=== PATIENT | female | born 1950 | race Caucasian/White ===

== ENCOUNTER 2022-09-08 15:38 | Emergency (ER) | payer MEDICARE, BC, SELFPAY ==
[2022-09-08 16:29] VITALS: BP 142/88; PULSE 71; RESP 18; TEMP 36.7; O2SAT 93
[2022-09-08 18:22] VITALS: BP 170/102; PULSE 69; O2SAT 97
--- NOTE | 2022-09-08 18:31 | ED.GENADULT ---
HPI - General Adult General Time Seen by Provider: 18:32 Date Seen: 09/08/22 Chief complaint: Head Injury/Pain Stated complaint: Hit Back of Head - Fell on Ice Time Seen by Provider: 09/08/22 18:17 Source: patient and RN notes reviewed Mode of arrival: ambulatory Limitations: no limitations History of Present Illness HPI narrative: Patient is a 72-year-old female coming into the ER tonight after falling on the ice. She was shoveling, slipped fell backwards hitting the back of her head. She had significant pain at 1st. [place] dizzy and nauseated without any emesis. The nausea has abated now. Denies any need for any pain management for headache. No visual changes, no neurologic changes. She states she hit the back of her head very hard. She is feeling dizzy with movement. She is on no blood thinners. She is a retired home health nurse, now giving out COVID shots. She was concerned about her blood pressure. It did go up after coming in here. I reviewed with her to try to not focus on that. We frequently see blood pressures go up in the ER, it is stressful. Reviewed with her that we will certainly be doing a head CT to rule out any intracranial pathology. This did seem to help settle her a bit. Patient did not lose consciousness. Related Data Home Medications Medication Instructions Recorded Confirmed levothyroxine 88 mcg tablet mcg 09/08/22 perservision 09/08/22 Previous Rx's Medication Instructions Recorded ondansetron 4 mg disintegrating 4 mg PO Q6H PRN nausea and 09/08/22 tablet vomiting #20 tabs Allergies Allergy/AdvReac Type Severity Reaction Status Date / Time copper Allergy Intermediate Verified 09/08/22 16:35 Review of Systems Status of ROS: Reports: 6 or more systems reviewed and unremarkable except as noted in History and below Exam Const: Vital Signs, click to edit/add: Vital Signs - 24 hr 09/08/22 16:29 09/08/22 18:22 Temperature 98.1 F Pulse Rate [Pulse Oximeter] 71 69 Respiratory Rate 18 Blood Pressure [Ri ght Upper Arm] 142/88 H 170/102 H Pulse Oximetry 93 97 Oxygen Delivery Me thod Room Air Room Air Documenting provider has reviewed patient's vital signs: yes Common normals: no apparent distress, average body habitus, oriented x3, no limitations, healthy appearing, alert and well nourished General appearance: cooperative, comfortable, well kempt and well developed HENMT: Common normals: normocephalic, hearing grossly normal bilaterally, external ears normal, external nose normal, nasal mucous membranes and turbinates normal, moist oral mucous membranes, oropharynx normal, dentition normal and gingiva normal Head and scalp: normocephalic Nose: external nose normal and nasal mucous membranes and turbinates normal External ear: external ears normal Other: Has a palpable raised area on the left occipital scalp that is tender, no visible discontinuity of the skin. Right canal is obstructed by serum min, she notes that it was noted at her physical, tried inxa-xpq-rmvykvj drops. Recommended that she may need to return to the clinic for flushing or see ENT for removal. Left TM canal are normal. Eye: Common normals: PERRL, EOMs intact bilaterally, conjunctivae normal and no scleral icterus Conjunctiva: conjunctiva(e) normal Pupil: PERRL Neck & C-Spine: Common normals: full ROM (No midline or paraspinous tenderness.), no lymphadenopathy, supple, no meningeal signs and no JVD Resp: Common normals: normal respiratory effort, no retractions, no use of accessory muscles and clear to auscultation bilaterally Auscultation: clear to auscultation bilaterally Cardio: Common normals: no JVD, regular rate, regular rhythm, S1 normal heart sound, S2 normal heart sound, no gallops, no clicks and no murmurs Rate: regular rate Rhythm: regular rhythm Heart sounds: S1 normal and S2 normal GI: Common normals: Normal to inspection, nondistended, normoactive bowel sounds present, soft to palpation, non-tender, no hepatosplenomegaly and no masses Palpation: soft and no hepatosplenomegaly Neuro: Common normals: oriented x3, CN's II-XII intact bilaterally, moves all extremities, no focal motor deficits, no sensory deficits noted and gait normal Sensorium/orientation: alert Meningeal signs: no meningeal signs Speech: speech normal Psych: Appearance: well kempt Course Course Hospital Course: Will obtain head CT. It is reassuring to see that the nausea has abated but did discuss with the patient that these symptoms can return. My presumption is that she will likely have a concussion and she could see waxing and waning of concussion symptoms. She did have some noted sense of dizziness with sitting up. Will ensure normal nontraumatic head CT, then discuss with her home management for concussion. Otherwise if there is pathology seen on the head CT, will act and treat accordingly. Reevaluation(s) Reevaluation #1: Reviewed with patient her normal head CT. She was worried about possible late bleeding, tried to reassure her that this is a very uncommon complication. Discussed meclizine use if she is having symptoms of feeling dizzy. She could try that it may or may not help her. I will send her with a prescription of Zofran in case nausea does return. Stressed to her that if she has ongoing symptoms that this is most definitely a concussion. Time: 19:27 Vital Signs Vital signs: Initial Vital Signs Temperature 98.1 F 09/08/22 16:29 Temperature Source Temporal Artery Scan 09/08/22 16:29 Pulse Rate 71 09/08/22 16:29 Respiratory Rate 18 09/08/22 16:29 Blood Pressure 142/88 H 09/08/22 16:29 Blood Pressure Mean 106 09/08/22 16:29 Blood Pressure Position Supine 09/08/22 16:29 Pulse Oximetry 93 09/08/22 16:29 Oxygen Delivery Method 09/08/22 16:29 Vital Signs Temperature 98.1 F 09/08/22 16:29 Pulse Rate 71 09/08/22 16:29 Respiratory Rate 18 09/08/22 16:29 Blood Pressure 142/88 H 09/08/22 16:29 Pulse Oximetry 93 09/08/22 16:29 Oxygen Delivery Method 09/08/22 16:29 Temperature 98.1 F 09/08/22 16:29 Pulse Rate 69 09/08/22 18:22 Respiratory Rate 18 09/08/22 16:29 Blood Pressure 170/102 H 09/08/22 18:22 Pulse Oximetry 97 09/08/22 18:22 Oxygen Delivery Method 09/08/22 18:22 Medical Decision Making Imaging Data CT scan - head: Attestation: I have reviewed the pertinent imaging results. Radiologist's impression: Patient: IVELISSE WOODS Facility:?[facility] Patient ID:?[id number] Site Patient ID:?[id number]. Site :?[id number] Study:?CT Head WITHOUT-09/08/2022 6:57:01 PM Ordering Physician:Usha Mckeon Final Report: INDICATION: Fall. Hit back of head on ice. TECHNIQUE: CT of the head without contrast. Coronal and sagittal reformats are included. COMPARISON: None. FINDINGS: No acute intracranial hemorrhage. No mass effect or midline shift. No hydrocephalus or extra-axial collections. White matter is within normal limits for age. No acute osseous abnormalities. Mastoid air cells and paranasal sinuses are clear. Normal soft tissues. IMPRESSION: IMPRESSION: 1. No acute intracranial abnormalities. Please note that all CT scans at this facility use dose modulation, iterative reconstruction, and/or weight-based dosing when appropriate to reduce radiation dose to as low as reasonably achievable. Dictated by Estevan Coronado MD @ 09/08/2022 7:08:49 PM (Electronic Signature) Critical Care Time Critical Care Time Critical Care Time: No Discharge Plan Discharge Clinical Impression: Concussion without loss of consciousness, Closed head injury Patient Disposition: Home, Self-Care Condition: Stable Instructions: Concussion (ED) Additional Instructions: Trying rest tonight, light activity until you know that you are feeling fully improved. Can use Tylenol and/or ibuprofen if you would needed for headache, headache can be associated with concussion. It is possible that the nausea will return, symptoms of concussion can be cyclic or wax and wane. Will send a prescription for Zofran in in case you need it. If you have ongoing symptoms of concussion, do recommend recheck in clinic with your primary care provider within the next 7-10 days. If there is ongoing concussion symptoms, talk to your primary care provider about going to a traumatic brain injury/concussion Center for further treatment and evaluation. Activity Level: Activity as Tolerated Discharge Diet: Regular Prescriptions: New ondansetron 4 mg tablet,disintegrating 4 mg PO Q6H PRN (Reason: nausea and vomiting) Qty: 20 0RF No Action levothyroxine 88 mcg tablet perservision Stand Alone Forms: [employer] Info Instructions
--- NOTE | 2022-09-08 18:39 | CRLHL7_ITS ---
For Patients: As a result of the Century Cures Act, medical imaging exams and procedure reports are released immediately into your electronic medical record. You may view this report before your referring provider. If you have questions, please contact your health care provider. INDICATION: Fall. Hit back of head on ice. TECHNIQUE: CT of the head without contrast. Coronal and sagittal reformats are included. COMPARISON: None. FINDINGS: No acute intracranial hemorrhage. No mass effect or midline shift. No hydrocephalus or extra-axial collections. White matter is within normal limits for age. No acute osseous abnormalities. Mastoid air cells and paranasal sinuses are clear. Normal soft tissues. IMPRESSION: IMPRESSION: 1. No acute intracranial abnormalities. Please note that all CT scans at this facility use dose modulation, iterative reconstruction, and/or weight-based dosing when appropriate to reduce radiation dose to as low as reasonably achievable. Dictated by Estevan Coronado MD @ 09/08/2022 7:08:49 PM (Electronically Signed)
[2022-09-08 19:00] VITALS: BP 156/89; PULSE 65; O2SAT 97
== END 2022-09-08 19:55 | disposition home or self-care (01) ==
PROVIDERS: Emergency Provider Family Medicine; PCP Internal Medicine
DX: S06.0X0A Concussion without loss of consciousness, initial encounter (principal); W00.0XXA Fall on same level due to ice and snow, initial encounter; Y93.H1 Activity, digging, shoveling and raking; Y92.017 Garden or yard in single-family (private) house as the place of occurrence of the external cause; Y99.8 Other external cause status
CPT/HCPCS: 70450; 99284

== ENCOUNTER 2022-11-01 06:12 | Emergency (ER) | payer MEDICARE, BC, SELFPAY ==
[2022-11-01 06:19] VITALS: BP 143/99; PULSE 86; RESP 16; TEMP 35.9; O2SAT 97; BMI 29.5
--- NOTE | 2022-11-01 06:37 | ED.EPISTAXIS ---
History of Present Illness General Chief Complaint: Epistaxis/Nosebleed Stated Complaint: Nosebleed Time Seen by Provider: 11/01/22 06:31 History of Present Illness HPI Narrative: Pt is a 72 year old woman who awoke this morning to put a pork roast in the crock pot. She developed spontaneous bleeding from the left nostril which then lead to bleeding from the right nostril as well. Pt states the bleeding was brisk. She comes in with both nostrils packed with gauze and the bleeding controlled. Pt has a distant history of epistaxis with none recently. Pt takes no anticoagulants or antiplatlet agents. Pt has had no recent trauma and has otherwise been in her usual state of health. Related Data Home Medications Medication Instructions Recorded Confirmed levothyroxine 88 mcg tablet 88 mcg PO .once daily 09/08/22 11/01/22 perservision 09/08/22 Previous Rx's Medication Instructions Recorded ondansetron 4 mg disintegrating 4 mg PO Q6H PRN nausea and 09/08/22 tablet vomiting #20 tabs Allergies Allergy/AdvReac Type Severity Reaction Status Date / Time copper Allergy Intermediate Verified 09/08/22 16:35 Review of Systems Status of ROS: Reports: 10 or more systems reviewed and unremarkable except as noted in History and below [facility] Medical History (Updated 11/01/22 @ 06:45 by Cal Khan MD) Epistaxis Hypothyroidism Social History Smoking Status: Never smoker Do you use any of these nicotine containing products: None Second hand tobacco smoke exposure: No How often do you have a drink containing alcohol: never How often do you have six or more drinks on one occasion: Never AUDIT-C Alcohol total score: 0 Non-prescribed substance use: denies use Exam Narrative: Exam Narrative: EXAM GENERAL: Patient appears comfortable and well. EYES: No scleral icterus. ENT: Tympanic membranes and oropharynx normal. Both nostrils packed with bloody gauze. THYROID: no thyroid nodules or thyromegaly. LYMPH: No supraclavicular or cervical lymphadenopathy. SKIN: Visible skin seen during exam normal or with benign process only. EXT: No dependent lower extremity pedal edema. HEART: Regular rate and rhythm with no murmurs, rubs, or gallops. LUNGS: Clear to auscultation bilaterally with no crackles or wheezes. ABD: Soft, non tender, non distended. PSYCH: Good eye contact, speech is not pressured. Const: Vital Signs, click to edit/add: Vital Signs - 24 hr 11/01/22 06:19 Temperature 96.7 F L Pulse Rate [Pulse Oximeter] 86 Respiratory Rate 16 Blood Pressure [Le ft Upper Arm] 143/99 H Pulse Oximetry 97 Oxygen Delivery Me thod Room Air Course Course Hospital Course: Both nostrils unpacked. No further bleeding on either side. Afrin soaked cotton ball packed into the left nostril. Vital Signs Vital signs: Initial Vital Signs Temperature 96.7 F L 11/01/22 06:19 Temperature Source Temporal Artery Scan 11/01/22 06:19 Pulse Rate 86 11/01/22 06:19 Pulse Rhythm 11/01/22 06:19 Respiratory Rate 16 11/01/22 06:19 Blood Pressure 143/99 H 11/01/22 06:19 Blood Pressure Mean 113 11/01/22 06:19 Pulse Oximetry 97 11/01/22 06:19 Oxygen Delivery Method 11/01/22 06:19 Vital Signs Temperature 96.7 F L 11/01/22 06:19 Pulse Rate 86 11/01/22 06:19 Respiratory Rate 16 11/01/22 06:19 Blood Pressure 143/99 H 11/01/22 06:19 Pulse Oximetry 97 11/01/22 06:19 Oxygen Delivery Method 11/01/22 06:19 Temperature 96.7 F L 11/01/22 06:19 Pulse Rate 86 11/01/22 06:19 Respiratory Rate 16 11/01/22 06:19 Blood Pressure 143/99 H 11/01/22 06:19 Pulse Oximetry 97 11/01/22 06:19 Oxygen Delivery Method 11/01/22 06:19 MDM - Epistaxis MDM Narrative Medical decision making narrative: Pt is a 72 year old healthy woman not on anticoagulants or anti-platelet agents who presents with epistaxis. Vital signs stable. Exam otherwise unremarkable. Pt's gauze removed and afrin soaked cotton ball placed into the left nostril. Pt has no further evidence of bleeding. Discharged home to change cotton ball as needed. Differential Diagnosis Differential diagnosis: Likely anterior epistaxis and posterior epistaxis Discharge Plan Discharge Clinical Impression: Epistaxis Condition: Stable Instructions: Nosebleed (ED) Additional Instructions: Change cotton ball as we discussed. Activity Level: No Restrictions Discharge Diet: Regular Prescriptions: No Action levothyroxine 88 mcg tablet 88 mcg PO .once daily perservision ondansetron 4 mg tablet,disintegrating 4 mg PO Q6H PRN (Reason: nausea and vomiting) Qty: 20 0RF Follow Up/Referrals: Angélica Jarvis MD [Primary Care Provider] - Stand Alone Forms: [employer] Info Instructions
[2022-11-01] MEDS: OXYMETAZOLINE (AFRIN) SOAK 1 EACH TOPICAL (06:41)
== END 2022-11-01 06:55 | disposition home or self-care (01) ==
LOC: ED 06:47
PROVIDERS: Emergency Provider Internal Medicine; PCP Internal Medicine
DX: R04.0 Epistaxis (principal)
CPT/HCPCS: 99283

== ENCOUNTER 2023-04-01 06:51 | Day surgery (SDC) | payer MEDICARE, BC, SELFPAY ==
[2023-04-01] MEDS: KETOROLAC OPHTH 0.5% 1 DROP EYE-RIGHT ×3 (07:00→07:10)
[2023-04-01] MEDS: TETRACAINE 0.5% OPHTH 1 DROP EYE-RIGHT ×2 (07:00→07:05)
[2023-04-01 07:06] VITALS: BMI 30.4
[2023-04-01 07:22] VITALS: BP 134/90; PULSE 71; RESP 18; TEMP 36.4; O2SAT 96
[2023-04-01] MEDS: SODIUM CHLORIDE 0.9 % (FLUSH) 10 ML SYRINGE IVF (07:24)
--- NOTE | 2023-04-01 07:27 | SUR.PREOP ---
The eye drops brought by the patient (Ketorolac and Prednisolone) are examined and I have determined they are labeled by the patient's pharmacy for this patient as prescribed by the surgeon. The bottles are intact, recently obtained and appear to be correct.[id number] right eye Ani ALVARENGA
[2023-04-01] MEDS: TETRACAINE 0.5% OPHTH 2 DROP EYE-RIGHT (08:00)
[2023-04-01] MEDS: BALANCED SALT IRRIG SOLN 15 ML EYE-RIGHT (08:06)
--- NOTE | 2023-04-01 08:06 | W.ANESCHARGE ---
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
[2023-04-01 08:29] VITALS: BP 142/89; PULSE 58; RESP 18; TEMP 36.4; O2SAT 94
--- NOTE | 2023-04-01 10:23 | W.PM.OPTPROC ---
Procedure Note Date of procedure: 04/01/23 Will [facility] bill your pro fee for this procedure?: Yes Procedure Description: SURGEON: Viri Fried MD PREOPERATIVE DIAGNOSIS: Nuclear sclerotic cataract, right eye. POSTOPERATIVE DIAGNOSIS: Nuclear sclerotic cataract, right eye. NAME OF OPERATION: Phacoemulsification of cataract with posterior chamber intraocular lens implantation in the right eye. ANESTHESIA: Topical. ESTIMATED BLOOD LOSS: Less than 2 cc. COMPLICATIONS: None. PATHOLOGY SPECIMEN: None. INDICATIONS: See consult note for details. The risks, benefits and alternatives of the procedure were explained to the patient, who elected to proceed and signed informed consent to do so. PROCEDURE: The patient was brought to the pre-holding area where the right eye was identified as the operative eye. I placed my initials above this eye. The patient received eye drops consisting of 0.5% tetracaine, 1% tropicamide, 10% phenylephrine, and 0.5% ketorolac. The patient was then brought to the operating room where the right eye was again identified as the operative eye. The eye was prepped with Betadine and draped in the usual sterile ophthalmic fashion. A #15 super-sharp blade was used to create a paracentesis site. 1% non-preserved intracameral lidocaine was injected into the anterior chamber. Endocoat was injected into the anterior chamber. A 2.4 mm keratome was used to create a three-plane self-sealing incision 1 mm anterior to the temporal limbus. A cystotome was used to create an anterior capsular leaflet. The Utrata forceps were used to extend this to form a continuous curvilinear capsulorrhexis. Hydrodissection was performed. The cataract was removed with phacoemulsification using the [id number] technique. The irrigation and aspiration tip was used to remove the remaining cortex. Healon was injected into the capsular bag. An JONAS ZCB00 intraocular lens of 15.0 diopters was injected into the capsular bag. The irrigation and aspiration tip was used to remove the remaining viscoelastic. Balanced salt solution on a cannula was used to hydrate the wound, and the wound was found to be watertight. The pupil was noted to be round. DISPOSITION: The patient was taken to the recovery room and discharged to home in stable condition. The patient was instructed to call me or go to the emergency department with any sudden change, including dramatic loss of vision, severe pain in the eye or eyebrow region, nausea, or vomiting. The patient will follow up in the clinic tomorrow morning.
== END 2023-04-01 09:03 | disposition home or self-care (01) ==
PROVIDERS: PCP Internal Medicine; Visit Provider Ophthalmology
PROC: (CPT 66984; principal; 2023-04-01 06:45)
DX: H25.11 Age-related nuclear cataract, right eye (principal)
CPT/HCPCS: 66984; 00142; 99100; A9270; J2250; J3010; V2632

== ENCOUNTER 2023-11-08 20:44 | Emergency (ER) | payer MEDICARE, BC, SELFPAY ==
[2023-11-08 20:48] VITALS: BP 161/96; PULSE 104; RESP 18; TEMP 36.1; O2SAT 97; BMI 29.3
[2023-11-08] MEDS: OXYMETAZOLINE 0.05% NASAL SPRAY 1 SPRAY NOSTRIL-B (21:07)
--- NOTE | 2023-11-08 21:18 | ED_ITS ---
History of Present Illness General Date Seen: 11/08/23 Chief Complaint: Epistaxis/Nosebleed Stated Complaint: Spontaneous nonstop nosebleed @ 6:45pm Time Seen by Provider: 11/08/23 20:47 Source: patient Mode of arrival: ambulatory Limitations: no limitations History of Present Illness HPI Narrative: Patient is a 73-year-old female with a history of hypothyroidism presenting to emergency department for epistaxis. She is not on any blood thinners. She says it started about 18:45 and while it has slowed down some but has not gone away completely. She tried packing it a and has also tried compression and keeping her head tilted forward. That has not stop the bleeding. She has no some blood going down the back of her throat. Is mostly in left nostril but she has had some bleeding from the right that she thinks is mostly just back up from the left nares. No other concerns at this time. Denies lightheadedness or dizziness. Of note she has had nosebleeds before and has seen ENT for it. She thinks is caused by dryness in her house and today she was not running her humidifier because she thought was getting warm up soon. She believes this is why the nosebleed started Related Data Home Medications Medication Instructions Recorded Confirmed levothyroxine 88 mcg tablet 88 mcg PO .once daily 09/08/22 04/01/23 perservision 1 cap PO BID 09/08/22 04/01/23 [id number] 250 1 tab PO BID 03/17/23 04/01/23 mg-40 mg-5 mg-125 unit tablet Previous Rx's Medication Instructions Recorded ondansetron 4 mg disintegrating 4 mg PO Q6H PRN nausea and 09/08/22 tablet vomiting #20 tabs Allergies Allergy/AdvReac Type Severity Reaction Status Date / Time copper Allergy Intermediate Verified 04/01/23 06:40 alendronate sodium Allergy Verified 04/01/23 06:40 Review of Systems Narrative: Pertinent systems reviewed and negative unless stated in HPI PFSH PFS Medical History Macular degeneration ?H35.30 - Unspecified macular degeneration (ICD-10) Insomnia ?G47.00 - Insomnia, unspecified (ICD-10) GERD (gastroesophageal reflux disease) ?K21.9 - Gastro-esophageal reflux disease without esophagitis (ICD-10) Hypothyroidism ?E03.9 - Hypothyroidism, unspecified (ICD-10) Epistaxis ?R04.0 - Epistaxis (ICD-10) Surgical History Hx of arthroscopy of left knee ?Z98.890 - Other specified postprocedural states (ICD-10) Hx of dilation and curettage ?Z98.890 - Other specified postprocedural states (ICD-10) Hx of appendectomy ?Z90.49 - Acquired absence of other specified parts of digestive tract (ICD- 10) Social History Smoking Status: Never smoker Do you use any of these nicotine containing products: None Second hand tobacco smoke exposure: No How often do you have a drink containing alcohol: never How often do you have six or more drinks on one occasion: Never AUDIT-C Alcohol total score: 0 Non-prescribed substance use: denies use Caffeine: Yes Are you using contraception or practicing any form of control: No Exam Narrative: Exam Narrative: Const: Well-nourished, Well-developed, in mild distress Eyes: PERRL, no conjunctival injection, and symmetrical lids HENT: Atraumatic external nose and ears. Moist mucous membranes. Bleeding seen from left nares. Cannot see clear site of bleeding. Blood seen in posterior oropharynx Neck: Symmetric, trachea midline, No thyromegaly. The move this MSK:Extremities w/o deformity, Normal Active ROM Skin: Warm, Dry. No rashes or lesions. Neuro: Normal Muscle tone, No focal neurological deficits. Psych: Awake, Alert, & Oriented x3. Appropriate mood and affect. Const: Vital Signs, click to edit/add: Vital Signs - 24 hr 11/08/23 20:48 11/08/23 22:05 Temperature 97.0 F L Pulse Rate [Left P ulse Oximeter] 104 H 82 Respiratory Rate 18 18 Blood Pressure [Ri ght Upper Arm] 161/96 H 143/95 H Pulse Oximetry 97 93 Oxygen Delivery Me thod Room Air Room Air Course Vital Signs Vital signs: Initial Vital Signs Temperature 97.0 F L 11/08/23 20:48 Temperature Source Temporal Artery Scan 11/08/23 20:48 Pulse Rate 104 H 11/08/23 20:48 Pulse Rhythm Regular 11/08/23 20:48 Respiratory Rate 18 11/08/23 20:48 Blood Pressure 161/96 H 11/08/23 20:48 Blood Pressure Mean 117 H 11/08/23 20:48 Blood Pressure Position Sitting 11/08/23 20:48 Pulse Oximetry 97 11/08/23 20:48 Oxygen Delivery Method Room Air 11/08/23 20:48 Vital Signs Temperature 97.0 F L 11/08/23 20:48 Pulse Rate 104 H 11/08/23 20:48 Respiratory Rate 18 11/08/23 20:48 Blood Pressure 161/96 H 11/08/23 20:48 Pulse Oximetry 97 11/08/23 20:48 Oxygen Delivery Method Room Air 11/08/23 20:48 Temperature 97.0 F L 11/08/23 20:48 Pulse Rate 82 11/08/23 22:05 Respiratory Rate 18 11/08/23 22:05 Blood Pressure 143/95 H 11/08/23 22:05 Pulse Oximetry 93 11/08/23 22:05 Oxygen Delivery Method Room Air 11/08/23 22:05 Medications Administered Medications: Generic Name Dose Route Start Last Admin Trade Name Freq PRN Reason Stop Dose Admin Oxymetazoline HCl 1 spray 11/08/23 21:00 11/08/23 21:07 Oxymetazoline 0.05% Nasal [place] NOSTRIL-B 11/08/23 21:01 1 spray ONCE ONE Administration MDM - Epistaxis MDM Narrative Medical decision making narrative: Patient is a 73-year-old female presenting for epistaxis. The epistaxis is to left nares. On exam there did appear to be a small trickle bleed but cannot say exactly where it is coming from. At this time she is otherwise stable and I will have her blow out all the clots from both nostrils and then place Afrin and a nose clamp. This was placed for 20 minutes and afterwards the bleeding had stopped. He monitored her for another 40 minutes Discharge Plan Discharge Clinical Impression: Epistaxis Patient Disposition: Home, Self-Care Condition: Stable Instructions: Nosebleed (ED) Additional Instructions: If you start having nosebleed again blow out all of the clots, use the Afrin (1- 2 sprays each nostril), then put the nose clamp on for 20 minutes and keep your head tilted forward. Return to emergency department for new or worsening symptoms. Prescriptions: No Action levothyroxine 88 mcg tablet 88 mcg PO .once daily perservision 1 cap PO BID ondansetron 4 mg tablet,disintegrating 4 mg PO Q6H PRN (Reason: nausea and vomiting) Qty: 20 0RF Hold Instructions: Doctor's Order [id number] [id number]-[id number] [id number] gk-uu-pw-unit tablet 1 tab PO BID Follow Up/Referrals: Angélica Jarvis MD [Primary Care Provider] - Stand Alone Forms: [employer] Info Instructions
--- OUTSIDE RECORDS SUMMARY | 2023-11-08 21:43 | XMS_ITS | Clinical Summary ---
Author Name Unknown Organization [employer] [facility] & [email or web address] Affiliates Address [place], [place] [address] Care Team Providers Care Public Service Officer Name Role Phone Angélica Jarvis MD Primary Care Provider [phone] Allergies Active Allergy Reactions Criticality Noted Date Comments Alendronate GI Upset 09/01/2022 Copper Hives 03/11/2007 Medications Medication Sig Dispensed Refills Start Date End Date Status vit C,X-Cm-xnzea-lutein- zeaxan (PRESERVISION AREDS 2) capsule Take 1 capsule by mouth 2 times daily. 0 03/27/2017 Active tbyumpt-dwx-xdq B6-vit D3-mineral (CALCIUM CITRATE + D WITH MAG) 458-19-8-125 zd-cl-hw-unit Take 1 tablet. by mouth once daily. 0 07/02/2020 Active valACYclovir (VALTREX) 1 gram tabletIndications:Re current cold sores Take 2 Tablets (2 g) by mouth two times daily. 12 Tablet 3 09/02/2023 Active levothyroxine (SYNTHROID) 88 mcg tabletIndications:Ac quired hypothyroidism Take 1 Tablet (88 mcg) by mouth once daily. 90 Tablet 3 10/26/2023 Active levothyroxine (SYNTHROID) 88 mcg tabletIndications:Ac quired hypothyroidism Take 1 Tablet (88 mcg) by mouth once daily. 90 Tablet 3 09/02/2023 10/26/2023 Discontinue d(Reorder (E-cancel not sent)) Hospital, Clinic, or Other Facility Administered Medication Ordered Dose Route Frequency Start Date End Date Status denosumab (PROLIA) injection 60 mgIndications:Osteoporosis without current pathological fracture, unspecified osteoporosis type 60 mg SubQ Q 26 WEEKS 09/03/2023 09/01/2024 Active Active Problems Problem Noted Date Diagnosed Date Osteoporosis without current pathological fractu re 09/02/2023 Macular degeneration 09/04/2017 Adenomatous polyps 06/23/2017 Overview: Sessile and serrated on c-scope 2016 Serrated adenoma of colon 06/19/2017 GERD (gastroesophageal reflux disease) 4 Insomnia 06/22/2012 Hypothyroidism Adrenal adenoma, right Overview: seen on CT scan, 1.9 x 1.3 cm 04/25 Hemangioma of liver Overview: liver Personal history of colonic polyps Resolved Problems Problem Noted Date Diagnosed Date Resolved Date ABNORMAL LIVER ENZYMES 04/12/200806/18 Dysthymic disorder 04/12/2008 5 Osteopenia 04/13/2006 09/01/2022 Overview: DXA scan 02/2014: lowest T-score -1.9 Encounters Date Type Department Care Team Description 10/22/[address] [address] Angélica Jarvis MD 09/02/2023 11:00 AM BRUSH FINISHER Office Visit [address] [address] Angélica Jarvis MD Medicare ANNUAL (subsequent) Visit; Medication List Update (Also taking Vitamin D 5000 IU's once daily ); Immunization/Injectio n; Immunization/Injectio n (COVID-19 vaccine) 09/02/2023 Travel from Last 3 Months Immunizations Name Administration Dates Next Due Amb Influenza, Inact (High-d ose) (Flu Clinic Only) 08/02/2015,07/27/2014 COVID-19 Vaccine Spikevax (M oderna 50mcg/0.5mL) 12YO+ 4996-9371 Formula PF 09/02/2023 COVID-19 vaccine (Moderna 100mcg/0.5mL) PF, V 09/05/2021,01/11/2021,12/14/2020 COVID-19 vaccine (Pfizer-Bio NTech 30mcg/0.3mL) 12YO+ VIVIANE-SUCROSE PF, MDV 02/13/2022 Influenza A (H1N1), Inactivated 09/19/2009 Influenza, High-dose Inactivated 07/30/2016,07/19,07/27/2014 Influenza, IIV3 (Age >=3 years) 08/09/20 13,08/17/2012,08/03/2009,2005 Influenza, IIV4 09/19/2009 Influenza, Inactivated AIIV4 (Age 65+ Years) Preserv Free 09/02/2023,09/01/2022,08/21/2021,2019 Influenza, Inactivated IIV3 (Age 65+ Years) Preserv Free 06/29/2019,07/26/2018,07/20/2017 Pneumococcal Poly,23-Valent (Pneumovax) 02/24/2014 Pneumococcal conj 13-Valent (Prevnar 13) 05/11/2015 Td (Age >=7 Years) 08/21/2021,12/11/2003 Tdap 06/18/2011 Zoster (Shingrix-RZV, recombinant) 11/21/2018, Zoster (Zostavax-ZVL, live) 04/17/2009 Family History Medical History Relation Name Comments Hypertension Brother 1 Hypertension Brother 2 Arrhythmia Brother 3 s/p ablation Stroke Brother 4 Good Health Daughter Diabetes Maternal Grandfather Hypertension Mother of vulvar cancer Diabetes Paternal Grandfather Hypertension Son Cancer-breast No Family History Relation Name Status Comments Brother 1 Brother 2 Brother 3 Alive Brother 4 Alive Daughter Alive x2 Father (Age 72) MVA Maternal Grandfather Mother (Age 78) of vu lva cancer Paternal Grandfather Son Alive Social History Tobacco Use Types Packs/Day Years Used Date Smoking Tobacco: Never Smokeless Tobacco: Never Tobacco Cessation:Counseling Given: Yes Alcohol Use Standard Drinks/Week Comments Yes 0 (1 standard drink = 0.6 oz pur e alcohol) occasionally PHQ-2 Answer Date Recorded PHQ-2 TOTAL SCORE 0 09/02/2023 Social Connections Answer Date Recorded Frequency of Communication with Friends and Fami ly Not on file 06/19/2023 Financial Resource Strain Answer Date R ecorded Difficulty of Paying Living Expenses 3 06/11/2022 Difficulty of Paying Living Expenses Not on file 06/11/2022 Food Insecurity Answer Date Recorded Worried About Running Out of Food in the Last Ye ar 1 06/11/2022 Transportation Needs Answer Date Record ed Lack of Transportation (Medical) 1 06/11/2022 Housing Stability Answer Date Recorded Unable to Pay for Housing in the Last Year 1 06/11/2022 Sex and Gender Information Value Date Recorded Sex Assigned at Female 09/07/2020 10:09 PM BRUSH FINISHER Gender Identity Not on file Sexual Orientation Straight 09/07/2020 10 :09 PM BRUSH FINISHER Obstetrics History Para Term AB IAB SAB Ectopic Multiple Livin g Live Births 4 3 1 1 3 Date Outcome GA Total Labor Labor/2nd/3rd Weight Sex Delivery Anes PTL Shari A1 A5 Name Cl in SAB Para Para Para Last Filed Vital Signs Vital Sign Reading Time Taken Comments Blood Pressure 118/70 09/02/2023 11:06 AM BRUSH FINISHER Pulse 71 09/02/2023 11:06 AM BRUSH FINISHER Temperature 36.7 ??C (98.1 ??F) 03/09/2023 2:44 PM CD T Respiratory Rate 20 08/22/2020 1:53 PM BRUSH FINISHER Oxygen Saturation 95% 09/02/2023 11:06 AM BRUSH FINISHER Inhaled Oxygen Concentration - - Weight 72.1 kg (159 lb) 09/02/2023 11:06 AM BRUSH FINISHER Height 155.6 cm (5' 1.25) 09/02/2023 11:[address] Body Mass Index 29.8 09/02/2023 11:06 AM BRUSH FINISHER Plan of Treatment Upcoming Encounters Date Type Department Care Team (Late st Contact Info) Description 11/23/2023 2:00 PM BRUSH FINISHER Appointment [address] [address] Health Maintenance Due Date Last Done Comments Mammogram for age 45-75 11/19/2023 11/19/19, 11/18/2021, 11/16/2020, Additional history exists Medicare Wellness for age 65+ 09/01/2024, 09/01/2022, 08/21/2021, Additional history exists BMI (ht and wt on same day) for age 18+ 09/02/2024 09/02/2023, 03/09/2023, 11/10/2022, Additional history exists Depression screening for age 12+ 09/02/2024 09/02/2023, 09/01/2022, 08/21/2021, Additional history exists Colonoscopy through age 75 07/12/202507/12, 06/19/2017, 05/13/2007, Additional history exists Lipids for age 45-75 09/02/2028 09/02/2023, 08/21/2021, 07/02/2020, Additional history exists Tetanus booster 08/21/2031 08/21/2021, 05/21, 12/11/2003 Tdap Completed 06/18/2011 Pneumococcal series for age 65+ Completed 5, 02/24/2014 Hepatitis C screening for ag e 18-79 Completed 06/12/2017 Zoster (shingles) series for age 50+ Completed 11/21/2018, 06/22/2018, 04/17/2009 DEXA/DXA scan for age 65+ Completed 2020, 02/24/2014, 06/18/2011, Additional history exists COVID-19 vaccine series Completed 09/02/20, 08/13/2022, 02/13/2022, Additional history exists Influenza for age 65+ Completed 09/02/2023 , 09/01/2022, 08/21/2021, Additional history exists Procedures Procedure Name Priority Date/Time Associated Diagnosis Comments CBC W PLT NO DIFF Routine 09/02/2023 12: 17 PM BRUSH FINISHER Fatigue, unspecified type LIPID PANEL W REFLEX MEASURED LDL Routine 09/02/2023 12:17 PM BRUSH FINISHER Elevated cholesterol BASIC METABOLIC PANEL Routine 09/02/2023 12:17 PM BRUSH FINISHER Osteoporosis without current pathological fracture, unspecified osteoporosis type TSH Routine 09/02/2023 12:17 PM BRUSH FINISHER Acquired hypothyroidism from Last 3 Months Results * (ABNORMAL) LIPID PANEL W REFLEX MEASURED LDL (09/02/2023 12:17 PM BRUSH FINISHER) CHOLESTEROL,TOTAL 222(H) 100 - 199 mg/dL 09/02/2023 3:11 PM [facility] Comment: Cholesterol, Total Reference Ranges Desirable <200 mg/dL Borderline 200-239 mg/dL High >=240 mg/dL TRIGLYCERIDES 183(H) <150 mg/dL 09/02/2023 3:11 PM [facility] HDL CHOLESTEROL 75 >40 mg/dL 3:11 PM [facility] NON-HDL CHOLESTEROL 147(H) <145 mg/dl 09/02/2023 3:11 PM [facility] CHOL/HDL RATIO 2.96 <4.50 09/02/2023 3:11 PM [facility] LDL CHOLESTEROL 110 <=130 mg/dL 09/02/2023 3:11 PM [facility] VLDL CHOLESTEROL 37(H) <=30 mg/dL 09/02/2023 3:11 PM [facility] PROVIDER ORDERED STATUS RANDOM 09/02/2023 3:11 PM [facility] Blood BLOOD SPECIMEN / Unknown Venipuncture / Unknown 09/02/2023 12:17 PM BRUSH FINISHER 09/02/2023 12:19 PM BRUSH FINISHER Angélica Jarvis MD CHEMISTRY [facility] [address] [place] [address] * TSH (09/02/2023 12:17 PM BRUSH FINISHER) TSH 1.15 0.27 - 4.20 uIU/mL 09/02/2023 3:11 PM [facility] Blood BLOOD SPECIMEN / Unknown Venipuncture / Unknown 09/02/2023 12:17 PM BRUSH FINISHER 09/02/2023 12:19 PM BRUSH FINISHER Narrative [facility] - 09/02/2023 3:11 PM BRUSH FINISHER In Adults, TSH values between 5.00 and 10.00 uIU/ml do not necessarily indicate the presence of Hypothyroidism. Correlation with clinical findings such as presence of goiter and/or Thyroperoxidase (TPO) Antibody may be helpful. For more information please refer to SEBASTIÁN 2004; 291: 228-238. Angélica Jarvis MD CHEMISTRY Performing Organization Address City/[facility]/ZIP Co de Phone Number [facility] [address] [place] [address] * CBC W PLT NO DIFF (09/02/2023 12:17 PM BRUSH FINISHER) WHITE BLOOD COUNT 7.7 4.5 - 11.0 thou/cu mm 09/02/2023 12:43 PM [facility] RED BLOOD COUNT 5.15 4.00 - 5.20 mil/cu mm 09/02/2023 12:43 PM [facility] HEMOGLOBIN 15.6 12.0 - 16.0 g/dL 09/02/2023 12:43 PM [facility] HEMATOCRIT 46.1 33.0 - 51.0 % 09/02/2023 12:43 PM [facility] MCV 90 80 - 100 fL 09/02/2023 12:43 PM [facility] MCH 30.3 26.0 - 34.0 pg 09/02/2023 12:43 PM [facility] MCHC 33.8 32.0 - 36.0 g/dL 09/02/2023 12:43 PM [facility] RDW 13.9 11.5 - 15.5 % 09/02/2023 12:43 PM [facility] PLATELET COUNT 252 140 - 440 thou/cu mm 09/02/2023 12:43 PM [facility] MPV 9.9 6.5 - 11.0 fL 09/02/2023 12:43 PM [facility] Blood BLOOD SPECIMEN / Unknown Venipuncture / Unknown 09/02/2023 12:17 PM BRUSH FINISHER 09/02/2023 12:19 PM BRUSH FINISHER Angélica Jarvis MD HEMATOLOGY Performing Organization Address City/[facility]/ZIP Co de Phone Number [facility] [address] [place] [address] * (ABNORMAL) BASIC METABOLIC PANEL (09/02/2023 12:17 PM [facility]) SODIUM 141 136 - 145 mmol/L 09/02/2023 3:11 PM [facility] POTASSIUM 4.3 3.5 - 5.1 mmol/L 09/02/2023 3:11 PM [facility] CHLORIDE 104 98 - 107 mmol/L 09/02/2023 3:11 PM [facility] CO2,TOTAL 28 22 - 29 mmol/L 09/02/2023 3:11 PM [facility] ANION GAP 9 5 - 18 09/02/2023 3:11 PM [facility] GLUCOSE 88 70 - 99 mg/dL 09/02/2023 3:11 PM [facility] CALCIUM 10.1 8.8 - 10.2 mg/dL 09/02/2023 3:11 PM [facility] BUN 22 8 - 23 mg/dL 09/02/2023 3:11 PM [facility] CREATININE 0.84 0.50 - 0.90 mg/dL 09/02/2023 3:11 PM [facility] BUN/CREAT RATIO 26(H) 10 - 20 3 3:11 PM [facility] eGFR 73(L) >90 mL/min/1.7 3m2 09/02/2023 3:11 PM [facility] Comment:As of 2021, eG FR is calculated by the CKD-EPI creatinine equation without race adjustment. ??eGFR can be influenced by muscle mass, exercise, and diet. ??The reported eGFR is an estimation only and is only applicable if the renal function is stable. Blood BLOOD SPECIMEN / Unknown Venipuncture / Unknown 09/02/2023 12:17 PM BRUSH FINISHER 09/02/2023 12:19 PM BRUSH FINISHER Angélica Jarvis MD CHEMISTRY [facility] [address] [place] [address] from Last 3 Months Advance Directives Latest Code Status on File Code Status Date Activated Date Inactivated Comments Full Code 07/12/2020 9:47 AM 07/12/2020 3:07 PM Question Answer Comments Code Status Discussion: Per Existing Order Code Status History Code Status Date Activated Date Inactivated Comments Full Code 04/19/2019 2:00 PM 04/19/2019 7:40 PM Question Answer Comments Code Status Discussion: Discussed Full Code 06/19/2017 9:33 AM 06/19/2017 5:35 PM Care Teams Public Service Officer Relationship Specialty Start Date End Date Angélica Jarvis MD [address] [place] [address] [place] [address] PCP - General Internal Medicine 01/28/18
[2023-11-08 22:05] VITALS: BP 143/95; PULSE 82; RESP 18; O2SAT 93
== END 2023-11-08 22:22 | disposition home or self-care (01) ==
PROVIDERS: Emergency Provider Student in an Organized Health Care Education/Training Program; PCP Internal Medicine
DX: R04.0 Epistaxis (principal)
CPT/HCPCS: 99282; 99283

== ENCOUNTER 2023-12-04 16:19 | Emergency (ER) | payer MEDICARE, BC, SELFPAY ==
[2023-12-04 16:36] VITALS: BP 154/101; PULSE 79; RESP 18; TEMP 37.2; O2SAT 95; BMI 28.8
--- NOTE | 2023-12-04 16:57 | ED.NURSE ---
pt no longer bleeding when nose clamp removed
--- OUTSIDE RECORDS SUMMARY | 2023-12-04 17:11 | XMS_ITS | Clinical Summary ---
Author Name Unknown Organization [employer] [facility] & [employer] [facility] Address [place], [place] [address] Care Team Providers Care Torpedo Shooter Name Role Phone Angélica Jarvis MD Primary Care Provider [phone] Allergies Active Allergy Reactions Criticality Noted Date Comments Alendronate GI Upset 09/01/2022 Copper Hives 03/11/2007 Medications Medication Sig Dispensed Refills Start Date End Date Status vit C,R-Mc-mlnqq-lutein-catarina chloe (PRESERVISION AREDS 2) capsule Take 1 capsule by mouth 2 times daily. 0 03/27/2017 Active inpergg-prf-tnq B6-vit D3-mineral (CALCIUM CITRATE + D WITH MAG) 514-58-2-125 of-vi-sq-unit Take 1 tablet. by mouth once daily. 0 07/02/2020 Active valACYclovir (VALTREX) 1 gram tabletIndications:Recur rent cold sores Take 2 Tablets (2 g) by mouth two times daily. 12 Tablet 3 09/02/2023 Active levothyroxine (SYNTHROID) 88 mcg tabletIndications:Acqui red hypothyroidism Take 1 Tablet (88 mcg) by mouth once daily. 90 Tablet 3 10/26/2023 Active Hospital, Clinic, or Other Facility Administered Medication [...] Encounters Date Type Department Care Team Description 12/04/2023 Telephone [facility] [address] [place] [address] Angélica Jarvis MD Appointment 12/04/2023 Nurse Triage [facility] [address] [place] [address] Angélica Jarvis MD Nose Problem 11/23/2023 1:51 PM CONDITIONING MACHINE OPERATOR - 11/23/2023 11:59 PM CONDITIONING MACHINE OPERATOR Hospital Encounter [facility] [address] [place] [address] Encounter for other screening for malignant neoplasm of breast 11/23/2023 Travel 10/22/2023 Refill [facility] [address] [place] [address] Angélica Jarvis MD from Last 3 Months Immunizations Name Administration Dates Next Due Amb Influenza, Inact (High-d ose) (Flu Clinic Only) 08/02/2015,07/27/2014 COVID-19 Vaccine Spikevax (M oderna 50mcg/0.5mL) 12YO+ [id number] Formula PF 09/02/2023 COVID-19 vaccine (Moderna 100mcg/0.5mL) PF MDV 09/05/2021,01/11/2021,12/14/2020 COVID-19 vaccine (Pfizer-Bio NTech 30mcg/0.3mL) 12YO+ [...] Sex Assigned at Female 09/07/2020 10:09 PM CONDITIONING MACHINE OPERATOR Gender Identity Not on file Sexual Orientation Straight 09/07/2020 10 :09 PM CONDITIONING MACHINE OPERATOR Obstetrics History Para Term AB IAB SAB Ectopic Multiple Livin g Live Births 4 3 1 1 3 Date Outcome GA Total Labor Labor//3rd Weight Sex Delivery Anes PTL Shari A1 A5 Name Cl in SAB Para Para Para Last Filed Vital Signs Vital Sign Reading Time Taken Comments Blood Pressure 118/70 09/02/2023 11:06 AM CONDITIONING MACHINE OPERATOR Pulse 71 09/02/2023 11:06 AM CONDITIONING MACHINE OPERATOR Temperature 36.7 ??C (98.1 ??F) 03/09/2023 2:44 PM CD T Respiratory Rate 20 08/22/2020 1:53 PM CONDITIONING MACHINE OPERATOR Oxygen Saturation 95% 09/02/2023 11:06 AM CONDITIONING MACHINE OPERATOR Inhaled Oxygen Concentration - - Weight 72.1 kg (159 lb) 09/02/2023 11:06 AM CONDITIONING MACHINE OPERATOR Height 155.6 cm (5' 1.25) 09/02/2023 11:[address] Body Mass Index 29.8 09/02/2023 11:06 AM CONDITIONING MACHINE OPERATOR Plan of Treatment Upcoming Encounters Date Type Department Care Team (Late st Contact Info) Description 12/11/2023 1:10 PM CONDITIONING MACHINE OPERATOR Office Visit [facility] [address] [place] [address] Jayleen Avalos PA [address] [place] [address] Health Maintenance Due Date Last Done Comments BMI (ht and wt on same day) for age 18+ 09/02/2024 09/02/2023, 03/09/2023, 11/10/2022, Additional history exists Depression screening for age 12+ 09/02/2024 09/02/2023, 09/01/2022, 08/21/2021, Additional history exists Medicare Wellness for age 65+ 09/02/2024, 09/01/2022, 08/21/2021, Additional history exists Mammogram for age 45-75 11/23/2024 11/23/19, 11/19/2022, 11/18/2021, Additional history exists Colonoscopy through age 75 [...] Procedure Name Priority Date/Time Associated Diagnosis Comments XR MAMMO OVIDIO BILAT SCREEN Routine 11/23/2023 2:13 PM CONDITIONING MACHINE OPERATOR Encounter for other screening for malignant neoplasm of breast from Last 3 Months Results * XR MAMMO OVIDIO BILAT SCREEN (11/23/2023 2:13 PM CONDITIONING MACHINE OPERATOR) Anatomical Region Laterality Modality BREASTS, Breast Left, Breast Right Bilateral Mammography Impressions 11/24/2023 8:34 AM CONDITIONING MACHINE OPERATOR ??There is no radiographic evidence for malignancy. ??Recommend annual mammograms. MAMMOGRAM ASSESSMENT: ??ACR 1 Negative PATIENTS: You will also receive a letter with your examination results in an easy to read format. ??If you have questions about your results, please contact your referring provider. Narrative 11/24/2023 8:34 AM CONDITIONING MACHINE OPERATOR For Patients: As a result of the Century Cures Act, medical imaging exams and procedure reports are released immediately into your electronic medical record. You may view this report before your referring provider. If you have questions, please contact your health care provider. XR MAMMO OVIDIO BILAT SCREEN [[id number]] CLINICAL HISTORY: ??This is an asymptomatic 73 y.o. patient. INDICATION FOR EXAM: Mammogram Screening. TECHNIQUE: CC & MLO views were obtained. ??This study was evaluated with the assistance of Computer-Aided Detection. Breast Tomosynthesis was used in interpretation. COMPARISON FILM: Yes 11/19/22 ? FINDINGS: ??The breasts have scattered areas of fibroglandular density. There are no dominant masses, suspicious micro calcifications or areas of architectural distortion. Angélica Jarvis MD MAMMO from Last 3 Months Advance Directives Latest [...] 9:33 AM 06/19/2017 5:35 PM Care Teams Torpedo Shooter Relationship Specialty Start Date End Date Angélica Jarvis MD [address] [place] [address] [place] [address] PCP - General Internal Medicine 01/28/18
[2023-12-04 17:58] LABS: Basophils Absolute Auto 0.04 K/uL (0.00-0.30); Basophils Percent Auto 0.7 % (0.0-3.0); Eosinophils Absolute Auto 0.09 K/uL (0.00-0.50); Eosinophils Percent Auto 1.7 % (0.0-7.0); Hematocrit 43.1 % (33.0-51.0); Hemoglobin* 14.6 gm/dL (12.0-16.0); Lymphocytes Absolute Auto 1.16 K/uL (0.90-2.90); Lymphocytes Percent Auto 21.6 % (20-44); Mean Corpuscular HGB Conc 34 gm/dL (32-36); Mean Corpuscular Hemoglobin 30 pg (26-34); Mean Corpuscular Volume 89 fL (80-100); Monocytes Percent Auto 10.2 % (0.0-11.0); Neutrophils Absolute Auto 3.53 K/uL (1.7-7.0); Neutrophils Percent Auto 65.8 % (42.0-72.0); Platelet Count* 267 K/uL (140-440); RDW Coefficient of Variation % 12.6 % (11.5-15.5); Red Blood Count 4.84 m/uL (4.00-5.20); White Blood Count* 5.37 K/uL (4.50-11.00)
[2023-12-04 18:11] LABS: Slide Review Reflex No
--- NOTE | 2023-12-04 18:26 | ED_ITS ---
History of Present Illness General Date Seen: 12/04/23 Chief Complaint: Epistaxis/Nosebleed Stated Complaint: nose bleed Time Seen by Provider: 12/04/23 16:36 Source: patient and family Mode of arrival: ambulatory Limitations: no limitations History of Present Illness HPI Narrative: Patient is a very nice 73-year-old female who has been to the emergency room now 4 times, with epistaxis, this started this afternoon, is been on off. She is not lightheaded, she is on no anticoagulation, denies any trauma or injury. She did have a history of epistaxis in the past, she has never had before cauterization done. She has been using the nasal clamp, to good effect. Using Afrin occasionally. Location: Yes left naris Context: Yes history of previous nose bleed Treatment prior to arrival: Yes nose pinching, Yes nasal clamp and Yes use of decongestions Related Data Home Medications Medication Instructions Recorded Confirmed levothyroxine 88 mcg tablet 88 mcg PO .once daily 09/08/22 04/01/23 perservision 1 cap PO BID 09/08/22 04/01/23 [id number] 250 1 tab PO BID 03/17/23 04/01/23 mg-40 mg-5 mg-125 unit tablet Previous Rx's Medication Instructions Recorded ondansetron 4 mg disintegrating 4 mg PO Q6H PRN nausea and 09/08/22 tablet vomiting #20 tabs Allergies Allergy/AdvReac Type Severity Reaction Status Date / Time copper Allergy Intermediate Verified 04/01/23 06:40 alendronate sodium Allergy Verified 04/01/23 06:40 Review of Systems Status of ROS: Reports: 10 or more systems reviewed and unremarkable except as noted in History and below [facility] Medical History Macular degeneration ?H35.30 - Unspecified macular degeneration (ICD-10) Insomnia ?G47.00 - Insomnia, unspecified (ICD-10) GERD (gastroesophageal reflux disease) ?K21.9 - Gastro-esophageal reflux disease without esophagitis (ICD-10) Hypothyroidism ?E03.9 - Hypothyroidism, unspecified (ICD-10) Epistaxis ?R04.0 - Epistaxis (ICD-10) Surgical History Hx of arthroscopy of left knee ?Z98.890 - Other specified postprocedural states (ICD-10) Hx of dilation and curettage ?Z98.890 - Other specified postprocedural states (ICD-10) Hx of appendectomy ?Z90.49 - Acquired absence of other specified parts of digestive tract (ICD- 10) Social History Smoking Status: Never smoker Do you use any of these nicotine containing products: None Second hand tobacco smoke exposure: No How often do you have a drink containing alcohol: never How often do you have six or more drinks on one occasion: Never AUDIT-C Alcohol total score: 0 Non-prescribed substance use: denies use Caffeine: Yes Are you using contraception or practicing any form of control: No Exam Narrative: Exam Narrative: Patient is sitting in room 4 no apparent distress, she is wearing the nasal clamp this was removed and there was absolutely no bleeding or clotting notable on the left naris. It is 1 small area on the anterior part of keisellbachs area. No bleeding is noted. I did watch her for over an hour she had no recurrent bleeding. Her oropharynx is otherwise normal, with no clot in the posterior pharynx. I did speak with our ENT physician. She will be seen on Thursday. We talked about way she can started stop it and I did offer to put a nasal pack in but she declined this. Her CBC was entirely normal Const: Vital Signs, click to edit/add: Vital Signs - 24 hr 12/04/23 16:36 Temperature 99 F Pulse Rate [Pulse Oximeter] 79 Respiratory Rate 18 Blood Pressure [Ri ght Upper Arm] 154/101 H Pulse Oximetry 95 Oxygen Delivery Me thod Room Air Documenting provider has reviewed patient's vital signs: yes Course Vital Signs Vital signs: Initial Vital Signs Temperature 99 F 12/04/23 16:36 Temperature Source Temporal Artery Scan 12/04/23 16:36 Pulse Rate 79 12/04/23 16:36 Respiratory Rate 18 12/04/23 16:36 Blood Pressure 154/101 H 12/04/23 16:36 Blood Pressure Mean 118 H 12/04/23 16:36 Blood Pressure Position Sitting 12/04/23 16:36 Pulse Oximetry 95 12/04/23 16:36 Oxygen Delivery Method Room Air 12/04/23 16:36 Vital Signs Temperature 99 F 12/04/23 16:36 Pulse Rate 79 12/04/23 16:36 Respiratory Rate 18 12/04/23 16:36 Blood Pressure 154/101 H 12/04/23 16:36 Pulse Oximetry 95 12/04/23 16:36 Oxygen Delivery Method Room Air 12/04/23 16:36 Temperature 99 F 12/04/23 16:36 Pulse Rate 79 12/04/23 16:36 Respiratory Rate 18 12/04/23 16:36 Blood Pressure 154/101 H 12/04/23 16:36 Pulse Oximetry 95 12/04/23 16:36 Oxygen Delivery Method Room Air 12/04/23 16:36 MDM - Epistaxis Lab Data Labs: Lab Results 12/04/23 Range/Units 17:48 WBC 5.37 (4.50-11.00) K/uL RBC 4.84 (4.00-5.20) m/uL Hgb 14.6 (12.0-16.0) gm/dL Hct 43.1 (33.0-51.0) % MCV 89 (80-100) fL MCH 30 (26-34) pg MCHC 34 (32-36) gm/dL RDW Coeff of Julian 12.6 (11.5-15.5) % Plt Count 267 (140-440) K/uL Neut % (Auto) 65.8 (42.0-72.0) % Lymph % (Auto) 21.6 (20-44) % Andrew % (Auto) 10.2 (0.0-11.0) % Eos % (Auto) 1.7 (0.0-7.0) % Baso % (Auto) 0.7 (0.0-3.0) % Neut # (Auto) 3.53 (1.7-7.0) K/uL Lymph # (Auto) 1.16 (0.90-2.90) K/uL Andrew # (Auto) 0.50 (0.00-0.90) K/UL Eos # (Auto) 0.09 (0.00-0.50) K/uL Baso # (Auto) 0.04 (0.00-0.30) K/uL Abs Immat Gran (auto) 0.00 (0.00-0.30) K/uL Imm/Tot Granulo (auto) 0.0 % Discharge Plan Discharge Clinical Impression: Epistaxis Patient Disposition: Home w/ Parent or Adult Condition: Stable Instructions: Nosebleed (ED) Additional Instructions: home rest and continue as is. Would followup with on [place] at our clinic on with him at 0915 am. Activity Level: Light activity Prescriptions: No Action levothyroxine 88 mcg tablet 88 mcg PO .once daily perservision 1 cap PO BID ondansetron 4 mg tablet,disintegrating 4 mg PO Q6H PRN (Reason: nausea and vomiting) Qty: 20 0RF Hold Instructions: Doctor's Order [id number] pr-rf-yl-unit tablet 1 tab PO BID Follow Up/Referrals: Angélica Jarvis MD [Primary Care Provider] - Shawn Lewis MD [Staff Physician] - Stand Alone Forms: [employer] Info Instructions
== END 2023-12-04 18:30 | disposition home or self-care (01) ==
PROVIDERS: Emergency Provider Family Medicine; PCP Internal Medicine
DX: R04.0 Epistaxis (principal)
CPT/HCPCS: 36415; 85025; 99283

== ENCOUNTER 2024-11-08 14:00 | Outpatient (RCR) | payer MEDICARE, BC, SELFPAY | END 2024-12-22 11:38 | disposition home or self-care (01) | PROVIDERS: PCP Internal Medicine; Visit Provider Internal Medicine | DX: M25.511 Pain in right shoulder (principal); M75.41 Impingement syndrome of right shoulder; M62.561 Muscle wasting and atrophy, not elsewhere classified, right lower leg; M79.2 Neuralgia and neuritis, unspecified; G14 Postpolio syndrome; M79.604 Pain in right leg; G89.29 Other chronic pain; M25.611 Stiffness of right shoulder, not elsewhere classified; M62.81 Muscle weakness (generalized); Z51.89 Encounter for other specified aftercare | CPT/HCPCS: 97110; 97140; 97162; 97530 ==

== ENCOUNTER 2025-09-29 11:21 | Outpatient (CLI) | payer MEDICARE, BC, SELFPAY ==
--- NOTE | 2025-09-29 12:44 | P.ANES_ITS ---
Anesthesia Charges Start Date/Time Anesthesia Start Date: 09/29/25 Anesthesia Start Time: 12:20 Stop Date/Time Anesthesia Stop Date: 09/29/25 Anesthesia Stop Time: 12:45 Summary Extremes of Age - Over 70 or under 1: MDA Coding CPT Codes CPT Codes: ANES LWR INTST NDSC NOS - [id number] ([id number]) P2 - PATIENT W/MILD SYST DISEASE, QK - GRAIN SAMPLER 2-4 CNCRNT ANES PROC, QX - PHOTOENGRAVING ETCHER APPRENTICE SVC W/ MD MED DIRECTION Additional Codes: Summary - Extremes of Age - Over 70 or under 1: MDA ([id number])
--- NOTE | 2025-09-29 12:44 | W.ANESCHARGE ---
Anesthesia Charges Start Date/Time Anesthesia Start Date: 09/29/25 Anesthesia Start Time: 12:20 Stop Date/Time Anesthesia Stop Date: 09/29/25 Anesthesia Stop Time: 12:45 Summary Extremes of Age - Over 70 or under 1: MDA Coding CPT Codes CPT Codes: ANES LWR INTST NDSC NOS - [id number] ([id number]) P2 - PATIENT W/MILD SYST DISEASE, QK - HOME CARE ASSOCIATE 2-4 CNCRNT ANES PROC, QX - VENEER CLIPPER SVC W/ MD MED DIRECTION Additional Codes: Summary - Extremes of Age - Over 70 or under 1: MDA ([id number])
--- NOTE | 2025-09-29 12:47 | P.ANES_ITS ---
Anesthesia Charges Start Date/Time Anesthesia Start Date: 09/29/25 Anesthesia Start Time: 12:20 Stop Date/Time Anesthesia Stop Date: 09/29/25 Anesthesia Stop Time: 12:45 Summary Extremes of Age - Over 70 or under 1: HEEL SLICKER Coding CPT Codes CPT Codes: MIGDALIA LWR INTST NDSC NOS - [id number] ([id number]) P2 - PATIENT W/MILD SYST DISEASE, QK - CHEMIST PHARMACEUTICAL 2-4 CNCRNT ANEArmand PROC, QX - HEEL SLICKER SVC W/ MD MED DIRECTION Additional Codes: Summary - Extremes of Age - Over 70 or under 1: HEEL SLICKER ([id number])
--- NOTE | 2025-09-29 12:47 | W.ANESCHARGE ---
Anesthesia Charges Start Date/Time Anesthesia Start Date: 09/29/25 Anesthesia Start Time: 12:20 Stop Date/Time Anesthesia Stop Date: 09/29/25 Anesthesia Stop Time: 12:45 Summary Extremes of Age - Over 70 or under 1: MASTER ESTHETICIAN Coding CPT Codes CPT Codes: MIGDALIA LWR INTST NDSC NOS - [id number] ([id number]) P2 - PATIENT W/MILD SYST DISEASE, QK - ASSISTANT DIRECTOR OF PLANT OPERATIONS 2-4 CNCRNT ANEArmand PROC, QX - MASTER ESTHETICIAN SVC W/ MD MED DIRECTION Additional Codes: Summary - Extremes of Age - Over 70 or under 1: MASTER ESTHETICIAN ([id number])
== END 2025-09-29 11:22 | disposition home or self-care (01) ==
LOC: OP CLINIC 11:23
PROVIDERS: PCP Internal Medicine; Visit Provider Internal Medicine Gastroenterology
DX: Z12.11 Encounter for screening for malignant neoplasm of colon (principal); D12.0 Benign neoplasm of cecum; Z12.2 Encounter for screening for malignant neoplasm of respiratory organs; Z86.0101 Personal history of adenomatous and serrated colon polyps
CPT/HCPCS: 00811; 00812; 45385; 99100; J2704